=== PATIENT | female | born 1995 | race Caucasian/White ===

== ENCOUNTER 2018-05-07 16:30 | Emergency (ER) | payer OTHER ==
[~2018-05-07] VITALS: Ht 175.3 cm; Wt 113.4 kg
[~2018-05-07 16:30] MED LIST: HYDROCODONE-AP1 EAC6 PO; IBUPROFEN 800800 M1 PO
[2018-05-07] MEDS ORDERED: LABETALOL HCL100 MG PO (16:48)
[2018-05-07] MEDS ORDERED: NYSTATIN 100,0015 G1 TOP (17:02)
[2018-05-07] MEDS ORDERED: KEFLEX500 M1 PO (17:02)
[2018-05-07 17:15] VITALS: BP 152/92
== END 2018-05-07 17:15 | disposition home or self-care (01) ==
LOC: M.ERS 16:30
DX: M79.3 Panniculitis, unspecified (principal); I10 Essential (primary) hypertension; Z98.890 Other specified postprocedural states

== ENCOUNTER → 2020-07-09 | Outpatient (CLI) | payer OTHER ==
[~2020-07-09] MED LIST changes: +KEFLEX500 M1 PO; +LABETALOL HCL100 MG PO; +NYSTATIN 100,0015 G1 TOP
== END ==
LOC: M.ULTRA 14:44
PROVIDERS: ATTEND Family Medicine
DX: R10.33 Periumbilical pain (principal); Z98.890 Other specified postprocedural states

== ENCOUNTER 2020-07-15 09:29 | Emergency (ER) | payer OTHER ==
[~2020-07-15] VITALS: Ht 175.3 cm; Wt 113.0 kg
[2020-07-15] MEDS ORDERED: ZOFRAN ODT4 MG DISSOLVE ×2 (09:44→12:27)
[2020-07-15] MEDS ORDERED: PROTONIX40 M4 PO (09:44)
[2020-07-15 09:56] LABS: URINE BLOOD NEGATIVE (Negative); URINE CLARITY CLEAR; URINE COLOR YELLOW; URINE GLUCOSE-RANDOM NEGATIVE (Negative); URINE KETONES 2+ (Negative); URINE LEUKOCYTES-REFLEX NEGATIVE (Negative); URINE NITRITE-REFLEX NEGATIVE (Negative); URINE PROTEIN 2+ (Negative); URINE SPECIFIC GRAVITY >= 1.030 (1.005-1.030)
[2020-07-15 10:01] LABS: URINE BILIRUBIN 2+ (Negative)
[2020-07-15 10:05] LABS: CASTS None Seen /LPF (None Seen); CRYSTALS None Seen /LPF (None Seen); ICTOTEST (BILI CONFIRMATORY) Negative (Negative); SQUAMOUS 0-3 Few /LPF (0-3); URINE RBC 0-2 Rare /HPF (0-2); URINE WBC-REFLEX 6-15 Few /HPF (0-5)
[2020-07-15 10:06] LABS: ABSOLUTE BASOPHILS 0.1 thou/uL (0.0-0.2); ABSOLUTE EOSINOPHILS 0.2 thou/uL (0.0-0.7); ABSOLUTE LYMPHOCYTES 1.6 thou/uL (0.8-5.3); ABSOLUTE MONOCYTES 0.6 thou/uL (0.0-1.2); ABSOLUTE NEUTROPHILS 4.5 thou/uL (1.6-8.1); BASOPHILS 0.8 %; EOSINOPHILS 2.4 %; HEMATOCRIT 37.7 % (37.0-47.0); HEMOGLOBIN 12.6 gm/dL (12.0-15.0); LYMPHOCYTES 23.3 %; MCH 28.7 pg (26.0-34.0); MCHC 33.4 g/dL (28.0-37.0); MONOCYTES 8.1 %; NUCLEATED RBCS 0 /100WBC; PLATELET COUNT* 205 thou/uL (150-400); POLYS 65.4 %; RBC 4.38 mil/uL (4.20-5.00); RDW-CV 13.5 % (10.5-14.5); WBC 6.9 thou/uL (4.0-11.0)
[2020-07-15 10:17] LABS: CALCIUM 9.5 mg/dL (8.5-10.1); CREATININE 1.4 mg/dL (0.6-1.3); POTASSIUM 3.3 mmol/L (3.5-5.1)
[2020-07-15 10:23] LABS: ALBUMIN 4.2 g/dL (3.4-5.0); TOTAL BILIRUBIN 0.4 mg/dL (<0.1-1.0); TOTAL PROTEIN 8.4 g/dL (6.4-8.2)
[2020-07-15 12:30] VITALS: BP 111/62
== END 2020-07-15 12:30 | disposition home or self-care (01) ==
LOC: M.ERS 09:29
PROVIDERS: Emergency Medicine Emergency Medical Services
DX: R11.2 Nausea with vomiting, unspecified (principal); I10 Essential (primary) hypertension; Z98.890 Other specified postprocedural states; Z98.84 Bariatric surgery status

== ENCOUNTER 2020-08-27 18:29 | Emergency (ER) | payer OTHER ==
[~2020-08-27] VITALS: Ht 175.3 cm; Wt 103.4 kg
[~2020-08-27 18:29] MED LIST changes: +PROTONIX40 M4 PO; +ZOFRAN ODT4 MG DISSOLVE
[2020-08-27 19:52] LABS: ABSOLUTE BASOPHILS 0.1 thou/uL (0.0-0.2); ABSOLUTE EOSINOPHILS 0.1 thou/uL (0.0-0.7); ABSOLUTE LYMPHOCYTES 1.5 thou/uL (0.8-5.3); ABSOLUTE MONOCYTES 0.4 thou/uL (0.0-1.2); ABSOLUTE NEUTROPHILS 2.9 thou/uL (1.6-8.1); EOSINOPHILS 1.4 %; HEMATOCRIT 35.5 % (37.0-47.0); HEMOGLOBIN 12.1 gm/dL (12.0-15.0); MCH 29.6 pg (26.0-34.0); MCHC 34.1 g/dL (28.0-37.0); MCV 86.7 fL (80.0-100.0); MONOCYTES 8.6 %; MPV 8.6 fl. (7.2-11.1); NUCLEATED RBCS 0 /100WBC; PLATELET COUNT* 282 thou/uL (150-400)
[2020-08-27 19:58] LABS: CALCIUM 8.9 mg/dL (8.5-10.1); CREATININE 1.1 mg/dL (0.6-1.3); POTASSIUM 3.1 mmol/L (3.5-5.1)
[2020-08-27 20:02] LABS: ALBUMIN 3.5 g/dL (3.4-5.0); TOTAL BILIRUBIN 0.7 mg/dL (<0.1-1.0); TOTAL PROTEIN 7.6 g/dL (6.4-8.2)
[2020-08-27] MEDS ORDERED: AUGMENTIN 500-1 EACH PO (20:47)
[2020-08-27 20:54] VITALS: BP 154/100
--- NOTE | 2020-08-28 11:02 | EKG ---
[place] [address] ELECTROCARDIOGRAM REPORT Name: VLADIMIRANNY SMITH Room: [facility]#: [id number] Admission: 08/27/20 Attend Phys: Discharge: Date of : 89 Date of Service: 08/27/201950 Report #: [id number] THIS REPORT FOR: //name// [facility] ED Test Date: 2020-08-27 Test Time: 19:51:32 Pat Name: ANNY GILBERT Department: Room: Gender: [employer] Manager: : 1995 Requested By: Juanita Casillas Order Number: [id number] MD: Chad Short Measurements Intervals [place] Rate: 62 P: 32 WI: 198 QRS: 18 QRSD: 101 T: 9 QT: 406 QTc: 413 Interpretive Statements Sinus rhythm No previous ECG available for comparison Electronically Signed On 08-28-2020 11:01:50 CDT by Chad Short [email or web address] <ELECTRONICALLY SIGNED> By: Chad Short MD, [facility] 08/28/201100 50 50 Chad Short MD, FACC /EPI
== END 2020-08-27 20:54 | disposition home or self-care (01) ==
LOC: M.ERS 18:29
PROVIDERS: Personal Emergency Response Attendant
DX: I10 Essential (primary) hypertension (principal); Z20.822 Contact with and (suspected) exposure to COVID-19; I16.0 Hypertensive urgency; R11.2 Nausea with vomiting, unspecified; Z98.890 Other specified postprocedural states; Z79.899 Other long term (current) drug therapy